=== PATIENT | male | born 1980 | race Caucasian/White ===

== ENCOUNTER 2024-11-20 11:07 | Emergency (ER) | payer OTHER, SELFPAY ==
--- NOTE | ~2024-11-20 | CT_ITS ---
EXAMINATION: CT abdomen pelvis w con DATE: 11/20/2024 13:34 INDICATION: Upper abdominal pain with diarrhea TECHNIQUE: Computed tomography (CT) of the abdomen and pelvis was performed with 100 mL Omnipaque-350 intravenous contrast. Automated exposure control and iterative reconstruction technique were employe d. The dose-length product was 571.55 mGy-cm. COMPARISON: None FINDINGS: Lung bases are clear. Heart size is normal. No pericardial or pleural effusion. Liver, gallbladder, s pleen, pancreas, bilateral adrenal glands and kidneys are normal. There is fluid throughout the colon and in the distal small bowel consistent with nonspecific diarrhea. No abnormal bowel wall thickenin g or obstruction. Normal appendix. Bladder is normal. No free intraperitoneal gas or fluid. No pathol ogically enlarged abdominal or pelvic lymphadenopathy. Small fat-containing umbilical hernia. There a re multiple small fatty masses in the subcutaneous tissues of the abdomen, pelvis and proximal thighs consistent with lipomas. 2 the largest measure 4.4 x 4.4 x 2.4 similar in the suprapubic is fat and 7.1 x 4.6 x 2.6 cm in the midline supraumbilical subcutaneous fat. Bones are unremarkable. IMPRESSION: 1. Nonspecific diarrhea. No other acute intra-abdominal/pelvic process. 2. Multiple scattered subcutaneous lipomas. Reviewed, dictated and finalized at location A.
[2024-11-20 11:08] VITALS: BP 131/96; PULSE 112; RESP 16; TEMP 36.6; O2SAT 100
[2024-11-20 11:49] LABS: Basophils Percent Auto 0.1 % (0.2-1.2); Eosinophils Absolute Auto 0.2 K/mm3 (0-0.3); Eosinophils Percent Auto 1.2 % (0-4.4); Hematocrit 54.7 % (42.0-52.0); Hemoglobin 17.3 g/dL (14.0-18.0); Immature Granulocyte Absolute 0.07 K/mm3 (0.00-0.031); Immature Granulocyte Percent A 0.4 % (0-0.5); Lymphocytes Absolute Auto 1.24 K/mm3 (0.9-3.2); Lymphocytes Percent Auto 7.2 % (18.3-44.2); Mean Corpuscular HGB Conc 31.6 g/dl (32-36); Mean Corpuscular Hemoglobin 26.6 pg (26-34); Mean Platelet Volume 9.8 fl (7.4-10.4); Monocytes Absolute Auto 0.8 K/mm3 (0.1-0.6); Monocytes Percent Auto 4.5 % (2.6-8.5); Neutrophils Absolute Auto 14.8 K/mm3 (1.3-6.7); Neutrophils Percent Auto 86.6 % (45.5-73.1); Platelet Count Result 306 k/mm3 (150-375); Red Blood Count 6.51 M/mm3 (4.6-6.20); Red Cell Distribution Width 15.1 % (11.5-14.5); White Blood Count 17.1 K/mm3 (4.5-10.0)
[2024-11-20 12:00] LABS: Alanine Aminotransferase 42 U/L (6-50); Albumin Level 5.2 g/dL (3.5-5.1); Alkaline Phosphatase 74 U/L (38-126); Anion Gap 12 mmol/L (4-12); Aspartate Amino Transferase 30 U/L (17-59); Bilirubin,Total 0.8 mg/dL (0.2-1.3); Blood Urea Nitrogen 18 mg/dL (9-20); Calcium 10.2 mg/dL (8.4-10.2); Carbon Dioxide 23 mmol/L (22-30); Chloride 106 mmol/L (98-107); Estimated CRCL calculation 77 ml/min; Estimated Glomerular Filt Rate > 60; Glucose 99 mg/dL (65-110); Lipase 102 U/L (23-300); Potassium 4.6 mmol/L (3.4-5.0); Sodium 141 mmol/L (137-145)
--- OUTSIDE RECORDS SUMMARY | 2024-11-20 12:02 | XMS_ITS | Clinical Summary ---
Author Organization [facility] Address [address] [place] [address] Care Team Providers Care Design Studio Consultant Name Role Phone Unavailable Primary Care Provider Unavailabl e Social History Tobacco Use Types Packs/Day Years Used Date Smoking Tobacco: Never Assessed Sex and Gender Information Value Date Recorded Sex Assigned at Not on file Legal Sex Male 6:38 PM CDT Gender Identity Not on file Sexual Orientation Not on file Plan of Treatment Health Maintenance Due Date Last Done Comments Annual Physical 1984 Hepatitis C 1999 DTaP, Tdap and Td Vaccines ( 1 - Tdap) 2000 Hepatitis B Vaccines (1 of 3 - 19+ 3-dose series) 2000 COVID-19 Vaccine (2023-2 5 season) 2024 HPV Vaccines Aged Out No longer eligi ble based on patient's age to complete this topic Meningococcal B Vaccine Aged Out No l onger eligible based on patient's age to complete this topic Meningococcal Vaccine Aged Out No ruddy ne eligible based on patient's age to complete this topic Pneumococcal Vaccine: Pediat rics (0 to 5 Years) and At-Risk Patients (6 to 49 Years) Aged Out No longer eligible b ased on patient's age to complete this topic RSV Immunizations Under 20 Months Aged Out No longer eligible based on patient's age to complete this topic
--- OUTSIDE RECORDS SUMMARY | 2024-11-20 12:02 | XMS_ITS | Referral Summary ---
Author Organization [facility] Address [address] [place] [address] Care Team Providers Care Him Clerk Name Role Phone Leeann Ortiz MD Primary Care Provider [phone] Encounters Date Type Department Care Team Description 11/10/2024 10:00 AM CDT Office Visit [facility] Care at [address] [address] Winsome Woods [place] Gastroenteritis (Primary Dx) from Last 3 Months Allergies No known active allergies Medications multivitamin capsule Take 1 capsule by mouth daily Active lisinopriL (PRINIVIL,ZESTR IL) 5 mg tabletIndicatio ns:Hypertension , essential TAKE 1 TABLET(5 MG) BY MOUTH DAILY 30 tablet 11 4 Active Zepbound 5 mg/0.5 mL pen injector ADMINISTER 5 MG UNDER THE SKIN 1 TIME WEEKLY FOR 4 WEEKS 5 Active Active Problems Problem Noted Date Diagnosed Date BMI 32.0-32.9,adult 02/17/2022 Assessment & Plan (02/17/2022 12:04 PM CDT): Discussed current weight, weight history and previous weight loss attempts. Discussed risks of obesity including development of weight related comorbidities. Discussed the importance of diet in weight loss. Advised to start tracking caloric intake and decrease. Advised 150 min of moderate intensity exercise per week. Follow-up to possibly discuss medication options to help with weight loss if no improvement seen with consistent lifestyle changes. S/P partial thyroidectomy 04/28/2021 Assessment & Plan (04/28/2021 2:29 PM CDT): Follow up TFT Chronic fatigue 04/28/2021 Assessment & Plan (04/28/2021 2:28 PM CDT): Will obtain CMP and Vit D along with TFT Patient in process of finding new PCP Papillary thyroid carcinoma 10/11/2019 Overview (12/12/2019): Diagnosis: [id number] papillary thyroid cancer A. Thyroid, right lobe, lobectomy - Papillary thyroid microcarcinoma, 0.7 cm - No lymphovascular invasion identified - Microscopic extrathyroidal extension into perithyroidal soft tissue - Margins are uninvolved by carcinoma - See synoptic summary Assessment & Plan (04/28/2021 2:29 PM CDT): Low SAURAV risk pathology Surveillance US unremarkable Assessment & Plan (12/12/2019 1:42 PM CDT): Discussed his low SAURAV risk pathology Discussed the concerns with isthmus nodule may have greater propensity for extrathyroidal extension and lymph node involvement, despite its small size. Also discussed patient concerns with hypothyroidism and reviewed TSH goal for his pathology is lower normal Discussed the pros and cons of continued surveillance versus completion thyroidectomy Surveillance will involve laboratory work to maintain TSH at goal and monitoring thyroid tumor markers realizing those are not always informative in the setting of hemithyroidectomy but monitoring the trend might be. We also discussed follow-up neck ultrasound in 6 months which is scheduled by ENT. Patient in favor of conservative measures and active surveillance. Superficial thrombosis of left lower extremity 1 Skin sensation disturbance 10/19/2014 Overview (10/24/2016): Disturbance of skin sensation Immunizations Immunization Administration Dates Next Due Influenza, Quadrivalent, Spl it, Preservative Free, Intramuscular 04/26/2020,04/24/2020 Influenza, Unspecified 04/18/2021 Pfizer SARS-CoV-2 Monovalent Vaccination (5-11 Y rs) 06/26/2021 Tdap 02/17/2022 Social History Tobacco Use Types Packs/Day Years Used Date Smoking Tobacco: Never Smokeless Tobacco: Never Tobacco Cessation:Counseling Given: Not Answered Alcohol Use Standard Drinks/Week Comments No 0 (1 standard drink = 0.6 oz pur e alcohol) PHQ-2 Answer Date Recorded PHQ-2 Total Score (If total score is 3 or more points, staff should administer the PHQ-9) 0 09/07/2023 Sex and Gender Information Value Date Recorded Sex Assigned at Not on file Legal Sex Male 9:01 PM STOREROOM SUPERVISOR Gender Identity Not on file Sexual Orientation Straight 07/02/2019 5: 16 PM STOREROOM SUPERVISOR Occupation Industry Job Start Date Job End Date [employer] Not on file Not on file Not on file Last Filed Vital Signs Vital Sign Reading Time Taken Comments Blood Pressure 127/86 11/10/2024 10:07 AM CDT Pulse 99 11/10/2024 10:07 AM CDT Temperature 36.5 C (97.7 F) 11/10/2024 10:07 AM CDT Respiratory Rate 22 11/10/2024 10:07 AM CDT Oxygen Saturation 98% 11/10/2024 10:07 AM CDT Inhaled Oxygen Concentration - - Weight 85.7 kg (189 lb) 11/10/2024 10:07 AM CDT Height 177 cm (5' 9.69 ) 09/07/2023 10:05 AM STOREROOM SUPERVISOR Body Mass Index 27.36 09/07/2023 10:05 AM STOREROOM SUPERVISOR Plan of Treatment Not on file Insurance [facility] [employer] [facility] H[facility]/PPO Address: [facility] [address] [place] [address] [facility] CHOICE [employer] H[facility]/PPO Address: [address] [address] [place] [address] [facility] [employer] [facility] H[employer]/PPO Address: [id number] [place] [address] [facility] [facility] [employer] [facility] H[employer]/PPO Address: [address] [address] [place] [id number] Advance Directives For more information, please contact: [phone] * Full Code (Latest Code Status on File) Date Activated Date Inactivated Comments 11/28/2019 12:39 PM 11/29/2019 3:18 PM Care Teams Him Clerk Relationship Specialty Start Date End Date Leeann Ortiz MD [address] [address] PCP - General Internal Medicine 09/07/23
--- OUTSIDE RECORDS SUMMARY | 2024-11-20 12:02 | XMS_ITS ---
Author Organization [facility] Address [address] [place] [address] Care Team Providers Care Furniture Restorer Name Role Phone Leeann Ortiz MD Primary Care Provider [phone] Active Problems Problem Noted Date Diagnosed Date [...] 10/19/2014 Overview (10/24/2016): Disturbance of skin sensation Current Treatment and Therapy Plans No current plan information found. Past Treatment and Therapy Plans No past plan information found. Lifetime Dose Tracking * Chemical Lifetime Dose Automatic Entry Manual Entr y DLP 693 mGycm 693 mGycm 0 mGycm
--- OUTSIDE RECORDS SUMMARY | 2024-11-20 12:02 | XMS_ITS | Clinical Summary ---
Author Organization [facility] Address [address] [place] [address] Care Team Providers Care Fur Cutter Name Role Phone Leeann Ortiz MD Primary Care Provider [phone] Allergies No known active allergies Medications multivitamin [...] 10/19/2014 Overview (10/24/2016): Disturbance of skin sensation Encounters Date Type Department Care Team Description 11/10/2024 10:00 AM CDT Office Visit [facility] at [address] [address] Winsome [place] Gastroenteritis (Primary Dx) from Last 3 Months Immunizations Immunization Administration Dates Next Due Influenza, Quadrivalent, Spl it, Preservative Free, Intramuscular 04/26/2020,04/24/2020 Influenza, Unspecified 04/18/2021 Pfizer SARS-CoV-2 Monovalent Vaccination (5-11 Y rs) 06/26/2021 Tdap 02/17/2022 Surgical History Surgery Date Site/Laterality Comments LIPOMA RESECTION abd and L arm VASECTOMY COLONOSCOPY 07/19/2017 - 07/18/2018 INGUINAL HERNIA REPAIR 1981 - 07/18/1982 WISDOM TOOTH EXTRACTION 07/19/2000 - 07/18/2001 THYROIDECTOMY, PARTIAL Medical History Medical History Date Comments Factor 5 Leiden mutation, heterozygous Acute superficial venous thr ombosis of lower extremity 2017 left greater saphenous vein thrombus GERD (gastroesophageal reflux disease) Papillary thyroid carcinoma (HCC) 2019 partial thyroid (isthmus removed) Lipoma few on abd/L arm Family History Medical History Relation Name Comments No Known Problems Brother 1 No Known Problems Brother 2 Factor V Leiden Cousin Coronary artery disease Father Riccardo s/p stent Hyperlipidemia Father Riccardo Hypertension Father Riccardo Colon cancer Father's Sister Coronary artery disease Maternal Grandfather Ilan Diabetes Maternal Grandfather Ilan Coronary artery disease Maternal Grandmother Sandy Stroke Maternal Grandmother Sandy Hypertension Mother Osteoporosis Mother Coronary artery disease Paternal Grandfather Endometriosis Sister Anesthesia problems Neg Hx Prostate cancer Neg Hx Relation Name Status Comments Brother 1 Alive Brother 2 Alive Cousin Alive Father Riccardo Alive Father's Sister Alive Maternal Grandfather Ilan Maternal Grandmother Sandy Mother Alive Paternal Grandfather Paternal Grandmother Sister Alive Social History Tobacco Use Types Packs/Day Years [...] on file Legal Sex Male 9:01 [address] PLANE TABLEMAN Gender Identity Not on file Sexual Orientation Straight 07/02/2019 5: [address] TABLEMAN Occupation Industry Job Start Date Job End Date [employer] Not on file Not on file Not on file Obstetrics History Last Filed Vital Signs Vital Sign Reading [...] cm (5' 9.69 ) 09/07/2023 10:[address] TABLEMAN Body Mass Index 27.36 09/07/2023 10:[address] TABLEMAN Plan of Treatment Health Maintenance Due Date Last Done Comments Hepatitis C Screening 1981 Hepatitis B Screening 1999 Covid-19 Vaccine ( season) 2024 06/26/2021, 09/03/2020, 08/13/2020 Depression Screening 09/07/2024 09/07/2023, 02/18/20 Regular Well Visit/Exam 18-64 09/07/2024 09/07/2023, 02/17/2022, 02/17/2022 Influenza Vaccine (Season Ended) 2025 06/02/2023, 04/18/2021, 04/26/2020, Additional history exists DTaP/Tdap/Td Vaccine (2 - Td or Tdap) 02/18/2032 02/17/2022 HPV Vaccines Aged Out No longer eligi ble based on patient's age to complete this topic Pneumococcal vaccine <65 Aged Out No longer eligible based on patient's age to complete this topic Varicella Vaccines Discontinued [place] [place] [address] [facility] [employer] [facility] H[facility]/PPO Address: [facility] [address] [place] [address] [facility] H[employer]/PPO Address: [address] [address] [place] [address] [facility] H[employer]/PPO Address: [address] [address] [place] [address] [facility] HMO/PPO Address: [address] [address] [place] [address] Advance Directives For more information, please contact: [phone] * Full Code (Latest Code Status on File) Date Activated Date Inactivated Comments 11/28/2019 12:39 PM 11/29/2019 3:18 PM Care Teams Fur Cutter Relationship Specialty Start Date End Date Leeann Ortiz MD [address] [address] PCP - General Internal Medicine 09/07/23
--- OUTSIDE RECORDS SUMMARY | 2024-11-20 13:11 | XMS_ITS | Clinical Summary ---
Author Organization [facility] Address [address] [place] [address] Care Team Providers Care Warp Hauler Name Role Phone Unavailable Primary Care Provider [...]
--- OUTSIDE RECORDS SUMMARY | 2024-11-20 13:11 | XMS_ITS ---
Author Organization [facility] Address [address] [place] [address] Care Team Providers Care Wire Drawer Name Role Phone Leeann Ortiz MD Primary Care Provider [phone] Active Problems Problem Noted Date Diagnosed Date [...]
--- OUTSIDE RECORDS SUMMARY | 2024-11-20 13:11 | XMS_ITS | Clinical Summary ---
Author Organization [facility] Address [address] [place] [address] Care Team Providers Care Project Manager/Design Manager Name Role Phone Leeann Ortiz MD Primary Care Provider [phone] Allergies No known active allergies Medications multivitamin [...] Description 11/10/2024 10:00 AM CDT Office Visit [facility] Care at [address] [address] [place]ome [place] Gastroenteritis (Primary [...] on file Legal Sex Male 9:01 PM POWER PLANT OPERATORS SUPERVISOR Gender Identity Not on file Sexual Orientation Straight 07/02/2019 5: 16 PM POWER PLANT OPERATORS SUPERVISOR Occupation Industry Job Start Date Job [...] cm (5' 9.69 ) 09/07/2023 10:05 AM POWER PLANT OPERATORS SUPERVISOR Body Mass Index 27.36 09/07/2023 10:05 AM POWER PLANT OPERATORS SUPERVISOR Plan of Treatment Health Maintenance Due Date [...] topic Varicella Vaccines Discontinued [place] [address] [facility] [employer] [facility] HMO/PPO Address: [facility] [address] [place] [address] [facility] HMO/PPO Address: [address] [address] [place] [address] [facility] HMO/PPO Address: [address] [address] [place] [address] [facility] HMO/PPO Address: [address] [address] [place] [address] Advance Directives For more information, please contact: [phone] * Full Code (Latest Code Status on File) Date Activated Date Inactivated Comments 11/28/2019 12:39 PM 11/29/2019 3:18 PM Care Teams Project Manager/Design Manager Relationship Specialty Start Date End Date Leeann Ortiz MD [address] [address] PCP - General Internal Medicine 09/07/23
--- OUTSIDE RECORDS SUMMARY | 2024-11-20 13:11 | XMS_ITS | Referral Summary ---
Author Organization [facility] Address [address] [place] [address] Care Team Providers Care Lime Slaker Name Role Phone Leeann Ortiz MD Primary Care Provider [phone] Encounters Date Type Department Care Team Description 11/10/2024 10:00 AM CDT Office Visit [facility] at [address] [address] [place]ome [place] Gastroenteritis (Primary [...] on file Legal Sex Male 9:01 PM COMMERCIAL ESCROW ASSISTANT Gender Identity Not on file Sexual Orientation Straight 07/02/2019 5: 16 PM COMMERCIAL ESCROW ASSISTANT Occupation Industry Job Start Date Job End [...] cm (5' 9.69 ) 09/07/2023 10:05 AM COMMERCIAL ESCROW ASSISTANT Body Mass Index 27.36 09/07/2023 10:05 AM COMMERCIAL ESCROW ASSISTANT Plan of Treatment Not on file Insurance [facility] EM[employer]ES [facility] CHOICE PLUS [facility] EM[employer]YEES [facility] EM[employer]ES [place] [id number] Advance Directives For more information, please contact: [phone] * Full Code (Latest Code Status on File) Date Activated Date Inactivated Comments 11/28/2019 12:39 PM 11/29/2019 3:18 PM Care Teams Lime Slaker Relationship Specialty Start Date End Date Leeann Ortiz MD [address] [address] PCP - General Internal Medicine 09/07/23
[2024-11-20] MEDS: SODIUM CHLORIDE 0.9% IV 1,000 ML 999 ML IV CONT (13:19)
[2024-11-20] MEDS: DICYCLOMINE HCL 10 MG CAPSULE 20 MG PO (13:19)
--- NOTE | 2024-11-20 13:29 | ED.ABDPAIN ---
HPI - Abdominal Pain General Chief Complaint: Abdominal Pain Stated Complaint: abdominal pain Time Seen by Provider: 11/20/24 12:03 History of Present Illness HPI narrative: Patient is a 44-year-old male who presents ER with diarrhea and abdominal pain. Had diarrhea for approximately 9 days that then resolved 1 week ago. Two days ago diarrhea began again and he is having about 10 loose stools a day. Has sulfur belching. No fevers or chills. No blood in his stool. No significant improvement with Imodium. Has not been on antibiotics. He did go to [facility] recently. His child had a GI illness a few days before he developed his but not before his 2nd bout. No LOC. Feels like he has to have a bowel movement every 5 minute. It is watery. Has upper abdominal cramping and pain that mildly improved with Aleve. Related Data Home Medications ?Medication ?Instructions ?Recorded ?Confirmed ?Last Taken ?Type lisinopril 5 mg tablet mg 11/20/24 11/19/24 History tirzepatide (weight loss) 2.5 mg subcut 11/20/24 11/13/24 History mg/0.5 mL subcutaneous pen injector (Zepbound) Allergies Allergy/AdvReac Type Severity Reaction Status Date / Time No Known Allergies Allergy Verified 11/20/24 11:37 Review of Systems Review of Systems: All systems reviewed & are unremarkable except as noted in HPI and below Constitutional: Constitutional: Reports no additional constitutional complaints ENT: Reports system reviewed and no additional complaints, except as documented Cardiovascular: Cardiovascular: Reports no additional cardiovascular complaints Respiratory: Respiratory: Reports no additional respiratory complaints Gastrointestinal: Gastrointestinal: Reports no additional gastrointestinal complaints Musculoskeletal: Musculoskeletal: Reports no additional musculoskeletal complaints [facility] Past Medical History Medical History (Updated 11/20/24 @ 15:56 by Caleb Palencia MD) Healthy adult male Surgical History Surgical History (Updated 11/20/24 @ 13:33 by Caleb Palencia MD) No history of previous surgery Exam Narrative: GENERAL: Well-appearing, well-nourished, and in no acute distress. HEAD: Normocephalic, atraumatic. EYES: PERRL and EOMI. ENT: Mucous membranes moist. CHEST: Clear to auscultation. No respiratory distress. HEART: Regular rate and rhythm. Normal peripheral pulses. ABDOMEN: Soft, nontender, nondistended. EXTREMITIES: Normal range of motion. No edema. SKIN: Alert and oriented x3. PSYCH: Normal mood and affect. Course Course Emergency Course: Patient resting comfortably. Informed of results. Hydrated. Will give Cipro/Flagyl for home given recurrent nature of excessive diarrhea. Abdomen is soft and nontender. C diff negative. Vital Signs Vital signs: Vital Signs Temperature 98 F 11/20/24 11:08 Pulse Rate 112 H 11/20/24 11:08 Respiratory Rate 16 11/20/24 11:08 Blood Pressure 131/96 H 11/20/24 11:08 Pulse Oximetry 100 11/20/24 11:08 Oxygen Delivery Room Air 11/20/24 11:08 Temperature 98 F 11/20/24 11:08 Pulse Rate 107 H 11/20/24 14:18 Respiratory Rate 17 11/20/24 14:18 Blood Pressure 105/66 11/20/24 14:18 Pulse Oximetry 99 11/20/24 14:18 Oxygen Delivery Room Air 11/20/24 11:08 MDM - Abdominal Pain Lab Data 11/20/24 11:43 11/20/24 11:43 Labs: Lab Results 11/20/24 11/20/24 11/20/24 Range/Units 11:43 13:11 14:10 WBC 17.1 H (4.5-10.0) K/mm3 RBC 6.51 H (4.6-6.20) M/mm3 Hgb 17.3 (14.0-18.0) g/dL Hct 54.7 H (42.0-52.0) % MCV 84.0 (80-100) fl MCH 26.6 (26-34) pg MCHC 31.6 L (32-36) g/dl RDW 15.1 H (11.5-14.5) % Plt Count 306 (150-375) k/mm3 MPV 9.8 (7.4-10.4) fl Immature Gran % (Auto) 0.4 (0-0.5) % Neut % (Auto) 86.6 H (45.5-73.1) % Lymph % (Auto) 7.2 L (18.3-44.2) % Billings % (Auto) 4.5 (2.6-8.5) % Eos % (Auto) 1.2 (0-4.4) % Baso % (Auto) 0.1 L (0.2-1.2) % Lymph # (Auto) 1.24 (0.9-3.2) K/mm3 Billings # (Auto) 0.8 H (0.1-0.6) K/mm3 Eos # (Auto) 0.2 (0-0.3) K/mm3 Baso # (Auto) 0.0 (0.0-0.1) K/mm3 Abs Immat Gran (auto) 0.07 H (0.00-0.031) K/mm3 Absolute Neuts (auto) 14.8 H (1.3-6.7) K/mm3 Absolute Nucleated RBC 0.000 (0.0-0.012) K/mm3 Nucleated RBC % 0.0 (0.0-0.2) % Sodium 141 (137-145) mmol/L Potassium 4.6 (3.4-5.0) mmol/L Chloride 106 (98-107) mmol/L Carbon Dioxide 23 (22-30) mmol/L Anion Gap 12 (4-12) mmol/L BUN 18 (9-20) mg/dL Creatinine 1.10 (0.7-1.3) mg/dL Estim Creat Clear Calc 77 ml/min Estimated GFR > 60 (59 - ) Glucose 99 (65-110) mg/dL Calcium 10.2 (8.4-10.2) mg/dL Total Bilirubin 0.8 (0.2-1.3) mg/dL AST 30 (17-59) U/L ALT 42 (6-50) U/L Alkaline Phosphatase 74 (38-126) U/L Total Protein 9.0 H (6.3-8.2) g/dL Albumin 5.2 H (3.5-5.1) g/dL Lipase 102 (23-300) U/L Urine Color Yellow (Yellow) Urine Appearance Clear (Clear) Urine pH 5.5 (5.0-9.0) Ur Specific Eden > 1.045 H (1.001-1.035) Urine Protein Trace (Negative) mg/dL Urine Glucose (UA) Negative (Negative) mg/dL Urine Ketones 1+ H (Negative) mg/dL Ur Blood (Man) Negative (Negative) Urine Nitrate Negative (Negative) Urine Bilirubin Negative (Negative) Urine Urobilinogen 0.2 (<2.0) mg/dL Add Ur Microanalysis Reviewed Leukocyte Esterase Rfl Negative (Negative) REYES/UL Urine RBC 0-2 (0-2) /hpf Urine WBC 0-5 (0-3) /hpf Ur Squamous Epith Cells None seen (Few) /hpf Urine Bacteria None seen /hpf Urine Casts 0-2 C. difficile (PCR) Negative (NEGATIVE) Imaging Data Radiologist's impression: ITS Impressions Abdomen/Pelvis CT 11/20/24 13:36 IMPRESSION: 1. Nonspecific diarrhea. No other acute intra-abdominal/pelvic process. 2. Multiple scattered subcutaneous lipomas. Discharge Plan Discharge Clinical Impression: Enteritis Patient Disposition: Home Condition: Stable Instructions: Antibiotic Form, Enteritis (ED) Additional Instructions: Please drink plenty of fluids at home. Return to the emergency department if you develop high fevers, have persistent severe abdominal pain, or have bloody stools or vomit, as these could be signs of a more serious medical emergency. Return to the emergency department if you are unable to keep down liquids because of severe nausea/vomiting. Patient Language: Northern Irish Prescriptions: New ciprofloxacin HCl [Cipro] 500 mg tablet 500 mg PO Q12H Qty: 14 0RF metronidazole 500 mg tablet 500 mg PO Q8H Qty: 21 0RF simethicone 125 mg capsule 125 mg PO QID Qty: 20 0RF Rx Instructions: administer after meals and at bedtime No Action lisinopril 5 mg tablet Zepbound 2.5 mg/0.5 mL pen injector SUBCUT Follow-up/Referrals: UNKNOWN,DOCTOR [Primary Care Provider] - 1 Week
[2024-11-20 14:16] LABS: Toxigenic C. Diff NEGATIVE (NEGATIVE)
[2024-11-20 14:18] VITALS: BP 105/66; PULSE 107; RESP 17; O2SAT 99
[2024-11-20 15:23] LABS: Add Urine Microscopic? YES; Appearance Urine Clear (Clear); Bacteria Urine None Seen /hpf; Bilirubin Urine Negative (Negative); Blood Urine Negative (Negative); Color Urine Yellow (Yellow); Glucose Urine UA Negative (Negative); Ketones Urine 1+ mg/dL (Negative); Leukocyte Esterase Ur Negative LEU/UL (Negative); Need Manual Microscopic Reviewed; Nitrate Urine Negative (Negative); Non Pathogenic Casts 0-2; Protein Urine Trace mg/dL (Negative); RBC Urine 0-2 /hpf (0-2); Specific Grav Ur > 1.045 (1.001-1.035); Squamous Epithelial Cell Urine None Seen /hpf (Few); Urobilinogen Urine 0.2 mg/dL (<2.0); WBC Urine 0-5 /hpf (0-3); pH Urine 5.5 (5.0-9.0)
== END 2024-11-20 16:18 | disposition home or self-care (01) ==
PROVIDERS: Emergency Medicine; Emergency Provider Emergency Medicine
DX: K52.9 Noninfective gastroenteritis and colitis, unspecified (principal); D17.1 Benign lipomatous neoplasm of skin and subcutaneous tissue of trunk; D17.24 Benign lipomatous neoplasm of skin and subcutaneous tissue of left leg; D17.23 Benign lipomatous neoplasm of skin and subcutaneous tissue of right leg
CPT/HCPCS: 36415; 74177; 80053; 81001; 83690; 85025; 87045; 87338; 87427; 87449; 87493; 96360; 99284; A9270; J7030; Q9967